=== PATIENT | female | born 1975 | race Caucasian/White ===

== ENCOUNTER 2016-10-19 10:07 | Day surgery (SDC) | payer BC ==
[~2016-10-19] VITALS: Ht 162.6 cm; Wt 86.4 kg
[~2016-10-19 10:07] MED LIST: EFFEXOR25 MG PO; LEVO-T50 MCG PO
[2016-10-19 10:51] VITALS: BP 123/72
[2016-10-19 12:06] LABS: METH RESISTANT S AUREUS PCR NEGATIVE (NEGATIVE)
[2016-10-19 12:07] LABS: PROBE CHECK PASS; SPECIMEN PROCESSING CONTROL PASS
[2016-10-19] MEDS ORDERED: NORCO 5/3251 TABLET PO (13:18)
[2016-10-19 14:05] VITALS: BP 117/68
[2016-10-19 15:05] VITALS: BP 107/63
[2016-10-19 16:27] VITALS: BP 106/56
== END 2016-10-19 16:29 | disposition home or self-care (01) ==
LOC: SDC 10:07
PROVIDERS: Surgery
PROC: 0FT44ZZ Resection of Gallbladder, Percutaneous Endoscopic Approach (ICD-10-PCS; principal; 2016-10-19)
PROC: 0DBS4ZX (ICD-10-PCS; principal; 2016-10-19)
DX: K80.10 Calculus of gallbladder with chronic cholecystitis without obstruction (principal); C77.2 Secondary and unspecified malignant neoplasm of intra-abdominal lymph nodes; R10.32 Left lower quadrant pain; K66.0 Peritoneal adhesions (postprocedural) (postinfection); E06.3 Autoimmune thyroiditis; M79.7 Fibromyalgia; Z82.49 Family history of ischemic heart disease and other diseases of the circulatory system; Z83.3 Family history of diabetes mellitus; Z80.9 Family history of malignant neoplasm, unspecified; Z88.0 Allergy status to penicillin; Z88.5 Allergy status to narcotic agent
CPT/HCPCS: 87641; 88304; 88305; 88341 TC; 88342 TC; J0690; J1100; J1170; J1885; J2405; J2710; J2765; J3010